=== PATIENT | female | born 1995 | race Hispanic/Latino ===

== ENCOUNTER 2017-05-22 11:28 | Emergency (ER) | payer OTHER ==
[~2017-05-22] VITALS: Ht 157.5 cm; Wt 100.4 kg
[~2017-05-22 11:28] MED LIST: AMOXICILLIN500 MG PO; AMOXICILLIN875 MG OR; AUGMENTIN875 MG PO; AUGMENTIN875TAB PO; AUGMENTINES600 PO; CIPRO500 MG PO; CIPROFLOXACN500 MG PO; CLARITIN10 M1 PO; KEFLEX500 MG PO; NAPROSYN500 MG PO; NO CURRENT MEDS; PREVACID30 M3 PO; PRILOSEC20 MG PO; TORADOL PO; ULTRAM50 M1 PO; ZOFRAN ODT4 MG PO
[2017-05-22 12:45] LABS: URINE BILIRUBIN - DIPSTICK NEGATIVE (NEGATIVE); URINE BLOOD DIPSTICK LARGE (NEGATIVE); URINE CLARITY TURBID; URINE COLOR RED; URINE GLUCOSE - DIPSTICK NEGATIVE (NEGATIVE); URINE KETONE TRACE mg/dL (NEGATIVE); URINE LEUK ESTERASE TRACE (NEGATIVE); URINE NITRITE - DIPSTICK NEGATIVE (Negative); URINE PH 5.5 (4.5-8.0); URINE PROTEIN - DIPSTICK 100 mg/dL (NEG-TRACE); URINE SPECIFIC GRAVITY 1.025; URINE UROBILINOGEN - DIPSTICK 0.2 E.U./dL (0.2)
[2017-05-22 12:47] LABS: URINE RBC >100 RBC/hpf (0-5); URINE SQUAMOUS EPITHELIAL CELL FEW EPI/hpf (0-FEW)
[2017-05-22 13:01] VITALS: BP 112/71
== END 2017-05-22 13:06 | disposition home or self-care (01) | DRG 761 ==
LOC: ED 11:28
PROVIDERS: Emergency Medicine
DX: N93.8 Other specified abnormal uterine and vaginal bleeding (principal)

== ENCOUNTER 2017-11-10 14:13 | Emergency (ER) | payer OTHER ==
[~2017-11-10] VITALS: Ht 157.5 cm; Wt 120.0 kg
[2017-11-10 14:40] VITALS: BP 118/68
== END 2017-11-10 14:40 | disposition home or self-care (01) | DRG 605 ==
LOC: ED 14:13
DX: S60.512A Abrasion of left hand, initial encounter (principal); X58.XXXA Exposure to other specified factors, initial encounter

== ENCOUNTER 2017-11-19 09:50 | Emergency (ER) | payer OTHER ==
[~2017-11-19] VITALS: Ht 157.5 cm; Wt 110.0 kg
[2017-11-19 10:41] LABS: URINE BILIRUBIN - DIPSTICK NEGATIVE (NEGATIVE); URINE BLOOD DIPSTICK LARGE (NEGATIVE); URINE GLUCOSE - DIPSTICK NEGATIVE (NEGATIVE); URINE KETONE NEGATIVE (NEGATIVE); URINE LEUK ESTERASE TRACE (NEGATIVE); URINE NITRITE - DIPSTICK NEGATIVE (Negative); URINE PROTEIN - DIPSTICK 30 mg/dL (NEG-TRACE); URINE SPECIFIC GRAVITY 1.025; URINE UROBILINOGEN - DIPSTICK 0.2 E.U./dL (0.2)
[2017-11-19 10:49] LABS: URINE CLARITY CLOUDY; URINE COLOR DK. YELLOW
[2017-11-19 10:51] LABS: URINE EPITHELIAL CELLS MANY EPI/hpf (0-FEW); URINE RBC TNTC RBC/hpf (0-5)
[2017-11-19 10:52] LABS: URINE BACTERIA MODERATE hpf
[2017-11-19] MEDS ORDERED: MACROBID100 MG PO (11:15)
[2017-11-19 11:19] VITALS: BP 132/89
== END 2017-11-19 11:39 | disposition home or self-care (01) | DRG 778 ==
LOC: ED 09:50
PROVIDERS: Emergency Medicine
DX: O20.0 Threatened abortion (principal); O23.40 Unspecified infection of urinary tract in pregnancy, unspecified trimester; O99.330 Smoking (tobacco) complicating pregnancy, unspecified trimester; F17.210 Nicotine dependence, cigarettes, uncomplicated; Z3A.00 Weeks of gestation of pregnancy not specified

== ENCOUNTER 2017-11-19 13:54 | Emergency (ER) | payer OTHER ==
[~2017-11-19 13:54] MED LIST changes: +MACROBID100 MG PO
== END 2017-11-19 14:00 | disposition left against medical advice (07) | DRG 951 ==
LOC: ED 13:54 → LWOBS 14:00
DX: Z91.19 Patient's noncompliance with other medical treatment and regimen (principal)